=== PATIENT | female | born 1980 | race Caucasian/White ===

== ENCOUNTER 2019-05-11 12:13 | Inpatient (IN) | payer OTHER ==
[~2019-05-11] VITALS: Ht 154.9 cm; Wt 67.2 kg
[~2019-05-11 12:13] MED LIST: CIPR-173; HYDR-1666; MAGN355O3; METO5TAB2 PO; OMEP20CA9; ONDA4SOL2 PO; ONDA8TAB14 PO; PREN1TAB49; PROM12.535; PROM25SU RC
[2019-05-11 15:45] VITALS: Ht 154.9 cm; Wt 67.2 kg
[2019-05-11 15:49] VITALS: BP 154/84; PULSE 67; RESP 18
--- NOTE | 2019-05-11 17:28 | HP ---
Date/Time of Note Date/Time of Note DATE: 05/11/19 TIME: 17:26 Assessment/Plan VTE Prophylaxis SCD applied (from Nsg): No SCD contraindicated: other Pharmacological prophylaxis: heparin Lines/Catheters IV Catheter Type (from Nrsg): Saline Lock Urinary Cath still in place: No Assessment/Plan Hospital Course Assessment and plan: 38-year-old female past medical history of gastritis and marijuana use who initially presented to outside hospital emergency room for vomiting, likely cyclic vomiting syndrome secondary to excessive marijuana use. #Nausea vomiting: Again likely signs of cyclic vomiting syndrome, secondary to marijuana use -Place patient on IV fluids, keep her n.p.o. for now -Antiemetic medications, follow-up TSH, A1c, lipid panel -Consider checking drug screen for other substances #Marijuana use: Counseled on cessation, particularly given the fact she has had multiple ER admissions in the last few months for cyclic vomiting syndrome likely secondary to excessive marijuana use #Gastritis: Place patient on IV Protonix twice daily for now HPI/ROS Admit Date/Time Admit Date/Time May 11, 2019 at 15:25 Hx of Present Illness 38-year-old female past medical history of gastritis and marijuana use who initially presented to outside hospital emergency room for vomiting. Patient states she has been vomiting for the last 3 days. Nonbloody. Mildly bilious. Also had some nausea symptoms. She is also been having decreased bowel movement for the last couple of days but has been passing gas. No upper or lower GI bleeding, no diarrhea or constipation. She has been having some slight headache symptoms however. No fevers or chills, nor chest pain or shortness of breath. When she came into the outside hospital she was found with potassium 2.8 and was given IV fluids, antiemetics, and potassium supplementation there. Patient has had at least 3 or 4 prior admissions to the outside hospital emergency room for similar symptoms, and each time she was found positive for weed and does admit to smoking marijuana recently, last time about 3 days ago. She has been diagnosed with cyclic vomiting syndrome in the past, likely secondary to excess marijuana use, although patient states "I do not smoke that much". PMH/Family/Social Past Medical History Coded Allergies: No Known Drug Allergy (Verified Allergy, Mild, 06/07/16) Past Surgical History Past Surgical Hx: other (Gallbladder surgery, tubal ligation) Social History Alcohol Use: occasionally Smoking Status: Unknown if ever smoked Drug Use: marijuana Exam/Review of Systems Vital Signs Vitals Vital Signs Date Temp Pulse Resp B/P (MAP) Pulse Ox O2 O2 Flow FiO2 Time Delivery Rate 05/11/19 98.7 67 18 154/84 99 15:49 (107) Exam Exam Constitutional: lying in bed, alert, in mild distress Head: normocephalic, atraumatic Eyes: EOMI, PERRL Respiratory: clear to auscultation, normal air movement Cardiovascular: S1, S2 heard Gastrointestinal: soft, mild tenderness to palpation epigastric area, otherwise no rebound or guarding, normal bowel sounds Extremities: no bilateral lower extremity edema Neuro: No focal deficits LIO COMBS May 11, 2019 17:28
[2019-05-11] MEDS ORDERED: DOCUSATE SODIUM 100 MG CAP PO PRN (17:30)
[2019-05-11] MEDS ORDERED: HYDROCODONE/APAP (5/325) TAB PO PRN (17:30)
[2019-05-11] MEDS ORDERED: NACL 0.9% 3 ML SYG IV SCH (17:30)
[2019-05-11] MEDS ORDERED: ONDANSETRON 4 MG INJ IV PRN (17:30)
[2019-05-11] MEDS ORDERED: LORAZEPAM 2 MG INJ IV PRN (17:30)
[2019-05-11] MEDS ORDERED: NITROGLYCERIN (SL) 0.4 MG TAB SL PRN (17:30)
[2019-05-11] MEDS ORDERED: ALBUTEROL/IPRATROPIUM (NEB) 3 ML AMP HHN PRN (17:30)
[2019-05-11] MEDS ORDERED: morphine 2 MG INJ IV PRN (17:30)
[2019-05-11] MEDS ORDERED: PROMETHAZINE 25 MG SUPP PR SCH (17:30)
[2019-05-11] MEDS ORDERED: MAGNESIUM HYDROXIDE 30ML CUP PO PRN (17:30)
[2019-05-11] MEDS ORDERED: ACETAMINOPHEN 325 MG TAB PO PRN (17:30)
[2019-05-11] MEDS: PANTOPRAZOLE 40 MG INJ IV SCH (18:04)
[2019-05-11] MEDS: SOD CHLORIDE 0.9% 1,000 ML IV SCH (18:05)
[2019-05-11 20:01] VITALS: BP 145/38; PULSE 65; RESP 20
[2019-05-11] MEDS: HEPARIN 5,000 UNIT/1 ML VIAL SC SCH (20:46)
[2019-05-12] MEDS: ONDANSETRON 4 MG INJ IV PRN ×2 (00:23→10:41)
[2019-05-12 01:25] VITALS: BP 135/90; PULSE 70; RESP 20
[2019-05-12] MEDS: SOD CHLORIDE 0.9% 1,000 ML IV SCH ×4 (03:19→23:10)
[2019-05-12] MEDS: PANTOPRAZOLE 40 MG INJ IV SCH ×2 (07:01→18:02)
[2019-05-12] MEDS: HEPARIN 5,000 UNIT/1 ML VIAL SC SCH ×2 (09:00→21:00)
[2019-05-12 10:04] VITALS: BP 191/97; PULSE 60; RESP 16
[2019-05-12] MEDS: hydrALAzine 20 MG INJ IV PRN (11:23)
[2019-05-12] MEDS: METOCLOPRAMIDE 10 MG INJ IV PRN ×2 (12:57→18:24)
--- NOTE | 2019-05-12 12:59 | PN ---
Date/Time of Note Date/Time of Note DATE: 05/12/19 TIME: 12:57 Assessment/Plan VTE Prophylaxis Risk score (from Ns)>0 risk: 0 SCD applied (from Nsg): Yes Pharmacological prophylaxis: other Lines/Catheters IV Catheter Type (from Nrsg): Peripheral IV Urinary Cath still in place: No Assessment/Plan Hospital Course S: Patient still with some nausea vomiting symptoms. O: VS- see below PE: Constitutional: lying in bed, alert, in mild distress Head: normocephalic, atraumatic Eyes: EOMI, PERRL Respiratory: clear to auscultation, normal air movement Cardiovascular: S1, S2 heard Gastrointestinal: soft, mild tenderness to palpation epigastric area, otherwise no rebound or guarding, normal bowel sounds Extremities: no bilateral lower extremity edema Neuro: No focal deficits Assessment and plan: 38-year-old female past medical history of gastritis and marijuana use who initially presented to outside hospital emergency room for vomiting, likely cyclic vomiting syndrome secondary to excessive marijuana use. #Nausea vomiting: Again likely signs of cyclic vomiting syndrome, secondary to marijuana use. Symptoms still present. -Continue IV fluids clear liquid diet as tolerated -Antiemetic medications, will add Tigan prn -Consider checking drug screen for other substances #Marijuana use: Counseled on cessation, particularly given the fact she has had multiple ER admissions in the last few months for cyclic vomiting syndrome likely secondary to excessive marijuana use #Gastritis: IV Protonix twice daily for now Result Diagram: 05/12/19 0436 05/12/19 0436 Results 24hrs Laboratory Tests Test 05/11/19 22:26 05/12/19 04:36 Free Thyroxine 1.37 White Blood Count 9.9 Red Blood Count 4.39 Hemoglobin 12.0 Hematocrit 37.7 Mean Corpuscular Volume 85.9 Mean Corpuscular Hemoglobin 27.3 L Mean Corpuscular Hemoglobin Concent 31.8 L Red Cell Distribution Width 13.0 Platelet Count 302 Mean Platelet Volume 10.4 # Immature Granulocytes % 0.300 Neutrophils % 61.3 Lymphocytes % 26.4 Monocytes % 10.4 Eosinophils % 1.0 Basophils % 0.6 Nucleated Red Blood Cells % 0.0 Immature Granulocytes # 0.030 Neutrophils # 6.0 Lymphocytes # 2.6 Monocytes # 1.0 H Eosinophils # 0.1 Basophils # 0.1 Nucleated Red Blood Cells # 0.0 Sodium Level 137 Potassium Level 3.5 Chloride Level 100 Carbon Dioxide Level 27 Anion Gap 10 Blood Urea Nitrogen 14 Creatinine 0.73 Est Glomerular Filtrat Rate mL/min > 60 Glucose Level 101 Hemoglobin A1c 5.2 Calcium Level 8.9 Phosphorus Level 3.1 Magnesium Level 2.4 Triglycerides Level 163 H Cholesterol Level 184 LDL Cholesterol, Calculated 109 HDL Cholesterol 42 Cholesterol/HDL Ratio 4.3 Thyroid Stimulating Hormone (TSH) 1.530 Exam/Review of Systems Exam Vitals Vital Signs Date Temp Pulse Resp B/P (MAP) Pulse Ox O2 O2 Flow FiO2 Time Delivery Rate 05/12/19 98.3 60 16 191/97 99 10:04 (128) Intake and Output 05/11/19 05/11/19 05/12/19 1515:00 23:00 07:00 IntakeIntake Total 420 ml 240 ml BalanceBalance 420 ml 240 ml Results Results 24hrs Laboratory Tests Test 05/11/19 22:26 05/12/19 04:36 Free Thyroxine 1.37 White Blood Count 9.9 Red Blood Count 4.39 Hemoglobin 12.0 Hematocrit 37.7 Mean Corpuscular Volume 85.9 Mean Corpuscular Hemoglobin 27.3 L Mean Corpuscular Hemoglobin Concent 31.8 L Red Cell Distribution Width 13.0 Platelet Count 302 Mean Platelet Volume 10.4 # Immature Granulocytes % 0.300 Neutrophils % 61.3 Lymphocytes % 26.4 Monocytes % 10.4 Eosinophils % 1.0 Basophils % 0.6 Nucleated Red Blood Cells % 0.0 Immature Granulocytes # 0.030 Neutrophils # 6.0 Lymphocytes # 2.6 Monocytes # 1.0 H Eosinophils # 0.1 Basophils # 0.1 Nucleated Red Blood Cells # 0.0 Sodium Level 137 Potassium Level 3.5 Chloride Level 100 Carbon Dioxide Level 27 Anion Gap 10 Blood Urea Nitrogen 14 Creatinine 0.73 Est Glomerular Filtrat Rate mL/min > 60 Glucose Level 101 Hemoglobin A1c 5.2 Calcium Level 8.9 Phosphorus Level 3.1 Magnesium Level 2.4 Triglycerides Level 163 H Cholesterol Level 184 LDL Cholesterol, Calculated 109 HDL Cholesterol 42 Cholesterol/HDL Ratio 4.3 Thyroid Stimulating Hormone (TSH) 1.530 Medications Medication Current Medications IV Flush (NS 3 ml) 3 ml PER PROTOCOL IV ; Start 05/11/19 at 17:30 Metoclopramide HCl (Reglan) 10 mg Q6H PRN IV NAUSEA/VOMITING; Start 05/11/19 at 17:30 Acetaminophen (Tylenol Tab) 650 mg Q6H PRN PO .PAIN 1-3 OR TEMP; Start 05/11/19 at 17:30 Acetaminophen/ Hydrocodone Bitart (Zaleski (5/325)) 1 tab Q6H PRN PO .MOD PAIN 4- 6; Start 05/11/19 at 17:30 Morphine Sulfate (morphine) 2 mg Q4H PRN IV .SEVERE PAIN 7-10 Last administered on 05/12/19at 11:22; Admin Dose 2 MG; Start 05/11/19 at 17:30 Docusate Sodium (Colace) 100 mg Q12H PRN PO .CONSTIPATION; Start 05/11/19 at 17:30 Magnesium Hydroxide (Milk Of Mag) 30 ml DAILY PRN PO .CONSTIPATION; Start 05/11/19 at 17:30 Pantoprazole (Protonix Iv) 40 mg 0600,1800 IV Last administered on 05/12/19at 07:01; Admin Dose 40 MG; Start 05/11/19 at 18:00 Heparin Sodium (Porcine) (Heparin (5000 Units/1ml)) 5,000 unit Q12 SC ; Start 05/11/19 at 21:00 Lorazepam (Ativan) 0.5 mg Q6H PRN IV ANXIETY; Start 05/11/19 at 17:30 Sodium Chloride 1,000 ml @ 100 mls/hr Q10H IV Last administered on 05/12/19at 07:02; Admin Dose 100 MLS/HR; Start 05/11/19 at 17:19 Albuterol/ Ipratropium (Duoneb) 3 ml Q4H RESP THERAPY PRN HHN SHORTNESS OF BREATH; Start 05/11/19 at 17:30 Hydralazine HCl (Apresoline) 10 mg Q6H PRN IV ELEVATED BLOOD PRESSURE Last administered on 05/12/19at 11:23; Admin Dose 10 MG; Start 05/11/19 at 17:30 Nitroglycerin (Nitroglycerin (Sl Tab) 0.4 Mg) 1 tab Q5M PRN SL ANGINA; Start 05/11/19 at 17:30 Ondansetron HCl (Zofran Inj) 4 mg Q6H PRN IV NAUSEA AND/OR VOMITING Last administered on 05/12/19at 10:41; Admin Dose 4 MG; Start 05/11/19 at 21:30 Ondansetron HCl 8 mg/Sodium Chloride 54 ml @ 216 mls/hr Q6H PRN IV NAUSEA AND/OR VOMITING; Start 05/11/19 at 21:30; Status Hold LIO COMBS May 12, 2019 12:59
[2019-05-12] MEDS ORDERED: TRIMETHOBENZAMIDE 100 MG/ML VIAL IM PRN (13:00)
[2019-05-12 14:09] VITALS: BP 148/74; PULSE 84; RESP 16
[2019-05-12] MEDS: ONDANSETRON INJ 8 MG in SOD CHLORIDE 0.9% 50 ML IV PRN ×2 (15:15→21:21)
[2019-05-12 19:46] VITALS: BP 124/76; PULSE 64; RESP 20
[2019-05-13 02:39] VITALS: BP 111/62; PULSE 64; RESP 20
[2019-05-13] MEDS: SOD CHLORIDE 0.9% 1,000 ML IV SCH (03:38)
[2019-05-13] MEDS: ONDANSETRON INJ 8 MG in SOD CHLORIDE 0.9% 50 ML IV PRN (03:38)
[2019-05-13] MEDS: PANTOPRAZOLE 40 MG INJ IV SCH ×2 (06:04→18:00)
[2019-05-13 07:37] VITALS: BP 183/92; PULSE 74; RESP 19
[2019-05-13] MEDS: HEPARIN 5,000 UNIT/1 ML VIAL SC SCH (08:12)
[2019-05-13] MEDS: hydrALAzine 20 MG INJ IV PRN (08:12)
[2019-05-13 08:45] VITALS: BP 126/74; PULSE 81; RESP 20
[2019-05-13 14:24] VITALS: BP 147/83; PULSE 65; RESP 18
--- NOTE | 2019-05-13 15:46 | PDOCDIS ---
Discharge Instructions CONDITION [id number] Patient Condition: [id number] Stable HOME CARE INSTRUCTIONS: [id number] Diet Instructions: [id number] Low Fat /Cholesterol ACTIVITY: [id number] Activity Restrictions: [id number] Slowly Increase Activity Rest between Activity Avoid heavy lifting FOLLOW UP/APPOINTMENTS Follow-up Plan Please take your medications as prescribed, see your doctor in the clinic in the next 1 week. Please cut back on your marijuana use or stop altogether. LIO COMBS May 13, 2019 15:46
--- NOTE | 2019-05-13 15:55 | DS ---
Date/Time of Note Date/Time of Note DATE: 05/13/19 TIME: 15:53 Discharge Summary Admission/Discharge Info Admit Date/Time May 11, 2019 at 15:25 Discharge Date/Time Discharge Diagnosis #Nausea vomiting: Again likely signs of cyclic vomiting syndrome, secondary to marijuana use. Slowly resolving #Marijuana use: Counseled on cessation, particularly given the fact she has had multiple ER admissions in the last few months for cyclic vomiting syndrome likely secondary to excessive marijuana use #Gastritis: Improving with Protonix. Patient Condition: Stable Hx of Present Illness 38-year-old female past medical history of gastritis and marijuana use who initially presented to outside hospital emergency room for vomiting. Patient states she has been vomiting for the last 3 days. Nonbloody. Mildly bilious. Also had some nausea symptoms. She is also been having decreased bowel movement for the last couple of days but has been passing gas. No upper or lower GI bleeding, no diarrhea or constipation. She has been having some slight headache symptoms however. No fevers or chills, nor chest pain or shortness of breath. When she came into the outside hospital she was found with potassium 2.8 and was given IV fluids, antiemetics, and potassium supplementation there. Patient has had at least 3 or 4 prior admissions to the outside hospital emergency room for similar symptoms, and each time she was found positive for weed and does admit to smoking marijuana recently, last time about 3 days ago. She has been diagnosed with cyclic vomiting syndrome in the past, likely secondary to excess marijuana use, although patient states "I do not smoke that much". Hospital Course Patient was admitted and initially made n.p.o. She was given IV fluids and multiple antiemetics during this hospital stay. Her symptoms slowly improved. On the day of discharge she was tolerating clear liquid diet, we were going to advance her diet to soft and regular. If she handles that today as she is having less abdominal pain, vital signs stable, labs are stable; if she handles all that today she will be discharged home today improved condition. She has been educated about the importance of cutting back on her marijuana use, as this is likely contributing to her nausea vomiting symptoms and the diagnosis of cyclic vomiting syndrome present on this admission. See below for full list of discharge medications. Home Meds Active Scripts Metoclopramide Hcl (Reglan) 5 Mg Tab, 5 MG PO Q6H, #20 TAB Prov:LIO COMBS S. 05/13/19 Ondansetron (Ondansetron Odt) 8 Mg Tab.rapdis, 8 MG PO Q6H PRN for NAUSEA AND/OR VOMITING, #30 TAB 2 Refills Prov:LIO COMBS S. 05/13/19 Reported Medications Ondansetron HCl (Zofran) 4 Mg/5 Ml Solution, 4 MG PO Q6 06/04/16 Promethazine HCl (Phenadoz) 25 Mg Supp.rect, 25 MG RC, SUPP.RECT 06/04/16 Vits W-Ca,Fe,Fa(<1MG) () 1 Tab Tablet, DAILY 06/29/11 Magnesium Hydroxide/Al Hydrox (Mylanta Liquid) 355 Ml Oral.susp 11/08/09 Ciprofloxacin Hcl (Cipro) 500 Mg Tablet 11/08/09 Promethazine Hcl (Phenergan) 12.5 Mg/Supp.rect Supp.rect 11/08/09 Omeprazole* (Prilosec*) 20 Mg Capsule. 11/08/09 Hydrocodone Bit/Acetaminophen (Vicodin 5/500 Tablet) 1 Tab Tablet 11/08/09 Follow-up Plan Please take your medications as prescribed, see your doctor in the clinic in the next 1 week. Please cut back on your marijuana use or stop altogether. Primary Care Provider Not On Staff Doctor Time spent on discharge: > 30 minutes Pending Labs Laboratory Tests Test 05/13/19 04:35 White Blood Count 10.2 10^3/ul (4.8-10.8) Red Blood Count 4.16 10^6/ul (4.20-5.40) Hemoglobin 11.3 g/dl (12.0-16.0) Hematocrit 35.4 % (37.0-47.0) Mean Corpuscular Volume 85.1 fl (82.0-101.0) Mean Corpuscular Hemoglobin 27.2 pg (29.0-33.0) Mean Corpuscular Hemoglobin Concent 31.9 g/dl (32.0-37.0) Red Cell Distribution Width 12.9 % (11.5-14.5) Platelet Count 262 10^3/UL (140-415) Mean Platelet Volume 10.8 fl (7.4-10.4) Immature Granulocytes % 0.500 % (0.001-0.429) Neutrophils % 66.9 % (39.0-77.0) Lymphocytes % 22.2 % (15.0-51.0) Monocytes % 8.5 % (0.0-11.0) Eosinophils % 1.2 % (0.0-7.0) Basophils % 0.7 % (0.0-2.0) Nucleated Red Blood Cells % 0.0 /100WBC (0.0-0.0) Immature Granulocytes # 0.050 10^3/ul (0.0-0.031) Neutrophils # 6.8 10^3/ul (1.6-7.5) Lymphocytes # 2.3 10^3/ul (0.8-2.9) Monocytes # 0.9 10^3/ul (0.3-0.9) Eosinophils # 0.1 10^3/ul (0.0-0.5) Basophils # 0.1 10^3/ul (0.0-0.1) Nucleated Red Blood Cells # 0.0 10^3/ul (0.0-0.0) Sodium Level 137 mmol/L (135-144) Potassium Level 3.3 mmol/L (3.5-5.1) Chloride Level 103 mmol/L (97-110) Carbon Dioxide Level 25 mmol/L (21-31) Anion Gap 9 (5-13) Blood Urea Nitrogen 12 mg/dl (7-20) Creatinine 0.75 mg/dl (0.44-1.00) Est Glomerular Filtrat Rate mL/min > 60 mL/min (>60) Glucose Level 96 mg/dl (70-220) Calcium Level 8.6 mg/dl (8.4-10.2) Phosphorus Level 3.6 mg/dl (2.5-4.9) Magnesium Level 2.1 mg/dl (1.7-2.5) LIO COMBS May 13, 2019 15:55
== END 2019-05-13 19:00 | disposition home or self-care (01) | DRG 103 ==
LOC: 2NE 15:25
PROVIDERS: ADMIT Hospitalist; ATTEND Hospitalist
DX: G43.A0 Cyclical vomiting, in migraine, not intractable (principal); K29.70 Gastritis, unspecified, without bleeding; T40.7X5A Adverse effect of cannabis (derivatives), initial encounter
CPT/HCPCS: 80048; 80061; 83036; 83735; 84100; 84439; 84443; 85025; C9113; J0360; J1644; J2060; J2270; J2405; J2765; J3250; J7030